=== PATIENT | male | born 1980 | race Caucasian/White ===

== ENCOUNTER 2017-08-25 12:58 | Emergency (ER) | payer BC ==
[2017-08-25 13:14] VITALS: BP 137/74
--- NOTE | 2017-08-25 13:54 | UC ---
Back Pain HPI - HPI Summary HPI Summary: 37 year old male with back pain. C/o left sciatic nerve pain x 1 week, states this happened 3 years ago and was given a cortisone injection for relief here at this Urgent care and requests at this time. No red flags , no bowel or bladder concerns. no foot drop or weakness. pain radiates from low back in to the left leg and is persistent. pain 8/10. has not taken meds. no PCP. was helping to replace tire and caused back spasm right away. tried to deal with the pain but can not any longer [ End ] - History of Current Complaint Chief Complaint: UCBackPain Stated Complaint: BACK/SCIATIC PAIN Time Seen by Provider: 08/25/17 13:53 Hx Obtained From: Patient Onset/Duration: Sudden Onset Timing: Constant Severity Initially: Moderate Character: Spasmodic, Stiffness Aggravating Factor(s): Movement Alleviating Factor(s): Rest Associated Signs And Symptoms: Positive: Negative Related History: Similar Episode Dx As - Allergies/Home Medications Allergies/Adverse Reactions: Allergies Allergy/AdvReac Type Severity Reaction Status Date / Time Lidocaine Allergy skin Verified 08/25/17 13:14 reaction PMH/Surg Hx/FS Hx/Imm Hx Previously Healthy: Yes - Surgical History Surgical History: None - Social History Occupation: Employed Full-time Lives: With Family Alcohol Use: None Substance Use Type: None Smoking Status (MU): Heavy Every Day Tobacco Smoker Type: Cigarettes Amount Used/How Often: 1 ppd Cessation Counseling: Patient Advised to Stop - Immunization History Most Recent Influenza Vaccination: no Review of Systems Musculoskeletal: Arthralgia, Decreased ROM Neurological: Paresthesia Is Patient Immunocompromised?: No All Other Systems Reviewed And Are Negative: Yes Physical Exam Triage Information Reviewed: Yes Appearance: Well-Appearing, Pain Distress - moderate Vital Signs: Initial Vital Signs Temp 98 F 08/25/17 13:09 Pulse 100 08/25/17 13:09 Resp 18 08/25/17 13:09 BP 137/74 08/25/17 13:09 Pulse Ox 100 08/25/17 13:09 Vital Signs Reviewed: Yes Eye Exam: Normal ENT Exam: Normal Dental Exam: Normal Neck exam: Normal Neck: Positive: 1 Respiratory Exam: Normal Cardiovascular Exam: Normal Musculoskeletal Exam: Normal Musculoskeletal: Positive: ROM Limited @ - bent over table in pain, left paraspinal tenderness to papation. no sp tenderness. no step offs. no drop foot. strength 5/5. skin normal to appearance. Neurological Exam: Normal Psychological Exam: Normal Skin Exam: Normal Back Pain Course/Dx - Course Course Of Treatment: per patient the solumedrol helped and he requests-- will offer at this time. offer steroids, refer to Ortho for follow up . he has no PCP at this time. he is aware of red flags and to go to ED if they develop and denies having any - Differential Dx/Diagnosis Differential Diagnosis/HQI/PQRI: Herniated Disc, Strain, Sprain Provider Diagnoses: sciatica Discharge - Discharge Plan Condition: Good Disposition: HOME Prescriptions: Cyclobenzaprine TAB* [Flexeril 10 MG TAB*] 10 mg PO BID PRN #10 tab PRN Reason: Spasms Methylprednisolone [Medrol Dosepak 4 MG*] 0 mg PO .SEE JONA INSTRUCTION #1 tab Patient Education Materials: Sciatica (ED), Lower Back Exercises (ED) Referrals: Quinton Victor MD [Medical Doctor] - 4 Days (Ortho referral ) No Primary Care Phys,NOPCP [Primary Care Provider] - 4 Days
[2017-08-25] MEDS ORDERED: methylPREDNISolone 125 MG* 2 ML VIAL IM ONE (14:08)
[2017-08-25] MEDS ORDERED: HYDROcodone/ACETAMIN 5-325 MG* 1 TAB PO ONE (14:08)
== END 2017-08-25 14:46 | disposition home or self-care (01) ==
LOC: UCCORT 12:58
DX: M54.30 Sciatica, unspecified side (principal); F17.210 Nicotine dependence, cigarettes, uncomplicated
CPT/HCPCS: 96372; 99202; G0463; J2930